=== PATIENT | female | born 1990 | race Asian ===

== ENCOUNTER → 2018-03-14 10:21 | Outpatient (CLI) | payer OTHER, SELFPAY | DX: Z23 Encounter for immunization (principal) | CPT/HCPCS: 90471; 90686 ==

== ENCOUNTER → 2019-03-15 07:21 | Outpatient (CLI) | payer OTHER, SELFPAY ==
--- NOTE | 2019-03-15 | DI.US.S_ITS ---
PROCEDURE: US PELVIC COMPLETE INDICATIONS: UNABLE TO INSERT IUD; POSSIBLE FIBROID TECHNIQUE: Real-time scanning was performed of the pelvic organs, with image documentation. Additional endovaginal scanning was necessary due to incomplete visualization of the adnexal and endometrial structures by transabdominal scanning. COMPARISON: None. FINDINGS: Transabdominal scanning: Limited scanning through the kidneys shows no hydronephrosis. No pathologic free abdominal or pelvic fluid. Endovaginal scanning: Uterus: Uterus is normal in size at 7.0 x 3.6 x 5.3 cm. The endometrium measures 12.6 mm in combined thickness. Ovaries: Normal ovaries bilaterally symmetr is on the right 2.4 x 1.6 x 2.1 cm on the left. IMPRESSION: Normal exam. Dictated by: Josh KOCH Interpreted: Galo May MD on 03/15/2019 at 10:08 Approved by: Galo May M.D. on 03/15/2019 at 12:39
== END ==
PROVIDERS: PCP Physician Assistant; Visit Provider Nurse Practitioner Family
DX: Z30.8 Encounter for other contraceptive management (principal)
CPT/HCPCS: 76830; 76856

== ENCOUNTER 2019-03-31 20:01 | Observation (INO) | payer OTHER, SELFPAY ==
[2019-03-31 20:08] VITALS: BP 148/103; PULSE 124; RESP 16; TEMP 37.3; O2SAT 100; BMI 23.8
[2019-03-31 20:30] LABS: Add Manual Diff / Slide Review NO; Basophils Absolute Auto 0 /uL (0-100); Basophils Percent Auto 0.2 % (0-2); Eosinophils Absolute Auto 0 /uL (0-450); Hematocrit 42.8 % (36-46); Hemoglobin 14.4 g/dL (12.0-16.0); Lymphocytes Absolute Auto 600 /uL (1100-4500); Lymphocytes Percent Auto 3.4 % (25-40); Mean Corpuscular HGB Conc 33.6 % (30-36); Mean Corpuscular Hemoglobin 30.8 PG (26-34); Mean Corpuscular Volume 91.7 fL (80-100); Monocytes Absolute Auto 600 /uL (0-900); Monocytes Percent Auto 3.3 % (3-14); Neutrophils Absolute Auto 16900 /uL (1500-7000); Neutrophils Percent Auto 93.1 % (50-75); Platelet Count 196 X10^3/uL (150-400); Prothrombin Time 11.8 SECONDS (10.1-12.7); Red Blood Cell Count 4.67 X10^6/uL (4.0-5.2); Red Cell Distribution Width 12.7 % (11.6-14.8); White Blood Cell Count 18.1 X10^3/uL (4.5-11.0)
[2019-03-31 20:33] LABS: PTT Partial Thromboplastin Tim 34 SECONDS (26.4-36.2)
[2019-03-31 20:34] LABS: Alanine Aminotransferase 13 IU/L (<35); Albumin 4.8 g/dL (3.5-5.0); Albumin Globulin Ratio 1.4 (1.0-2.8); Alkaline Phosphatase 61 U/L (38-126); Amylase 89 U/L (30-110); Aspartate Aminotransferase 22 IU/L (14-36); Bilirubin Total 0.5 mg/dL (0.2-1.3); Blood Urea Nitrogen 9 mg/dL (7-17); Calcium 9.7 mg/dL (8.4-10.2); Carbon Dioxide 25 mmol/L (22-32); Chloride 104 mmol/L (98-107); Estimated Glomerular Filt Rate > 60.0 mL/min (>60); Globulin 3.4 g/dL (1.7-4.1); Glucose 139 mg/dL (70-100); HEMOLYSIS < 15 (0-50); Lipase 54 U/L (23-300); Sodium 140 mmol/L (137-145); Total Protein 8.2 g/dL (6.3-8.2)
[2019-03-31] MEDS: MORPHINE 2 MG/ML INJ IV (20:36)
[2019-03-31] MEDS: ONDANSETRON 4 MG/2 ML INJ IV (20:36)
[2019-03-31 20:46] LABS: Influenza A and B by PCR Rapid Negative (Negative)
--- NOTE | 2019-03-31 20:51 | DI.CT.S_ITS ---
PROCEDURE: CT ABDOMEN PELVIS W CON INDICATIONS: fever, abd pain, tachy, elevated wbc TECHNIQUE: After the administration of intravenous contrast, 5 mm thick sections acquired from the diaphragm to the symphysis. 5 mm coronal and sagittal reformats were acquired. For radiation dose reduction, the following was used: automated exposure control, adjustment of mA and/or kV according to patient size. COMPARISON: None. FINDINGS: Image quality: Excellent. ABDOMEN: Lung bases: Lung bases are clear. Heart size is normal. Solid organs: Liver is enlarged with steatosis. Gallbladder demonstrates a luminal calcification without wall thickening. Biliary system is non dilated. Pancreas enhances normally. Spleen is normal in size and enhancement. No adrenal nodules. Kidneys demonstrate normal size and enhancement, without hydronephrosis. Peritoneum and bowel: Bowel loops demonstrate normal wall thickness and caliber. No free fluid or air. The appendix is enlarged measuring 12 mm. Her surrounding periappendiceal inflammatory change. No appendicolith. No evidence of rupture. Nodes and vessels: No retroperitoneal or mesenteric adenopathy by size criteria. Aorta and inferior vena cava are normal in size. Miscellaneous: No ventral hernias. PELVIS: Genitourinary: Bladder wall thickness is normal. Miscellaneous: No inguinal hernias or adenopathy. Bones: No suspicious bony lesions. No vertebral body compression fractures. IMPRESSION: 1. Enlarged appendix with inflammatory change most consistent with appendicitis. The above findings were discussed with Dr. Damion Osorio on 03/31/19 at 9:26 PM. Dictated by: Neida Patino M.D. on 03/31/2019 at 21:25 Approved by: Neida Patino M.D. on 03/31/2019 at 21:28
[2019-03-31 21:15] LABS: Procalcitonin < 0.05 ng/mL (<0.5)
[2019-03-31] MEDS: SODIUM CHLORIDE 0.9% 1,000 ML 1000 ML IV (21:15)
--- NOTE | 2019-03-31 21:22 | ED.ABDPAIN ---
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 She states that has been going on since yesterday. She states it is worse with she has not been able to keep anything down today and vomited starting this morning. She states she had a normal bowel movement today. She states she has had 4 episodes of this in the past, but it always resolves. She complains of muscle aches and chills, general malaise. She denies any chest pain shortness of breath. At slight cough and congestion for the past few days. Vaccinations are up-to-date. 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 She denies any her story of IBS or Crohn's etc. She states that she does not know her father's family history. She denies any dysuria urgency or frequency. She denies possibility of , and states that she had a pelvic ultrasound few weeks ago as she tried to get an IUD but they are unable to insert it. The patient denies right upper quadrant pain. She states her pain is generalized around her bellybutton. Related Data Allergies Allergy/AdvReac Type Severity Reaction Status Date / Time No Known Drug Allergies Allergy Verified 03/31/19 21:59 Review of Systems <NAYA Isabel - Last Filed: 03/31/19 21:36> Review of Systems Narrative: GENERAL: Denies chills, fatigue, malaise, fever, sweats. HEENT: Denies sinus pain, ear pain, sore throat, difficulty swallowing, dizziness. RESPIRATORY: Denies dyspnea, cough, wheezing, hemoptysis, sputum. CARDIOVASCULAR: Denies chest pain, palpitations, orthopnea, edema, GASTROINTESTINAL: See HPI : Denies dysuria, frequency, incontinence, hematuria, urinary retention. MUSCULOSKELETAL: denies weakness, joint pain, or bony pain SKIN: Denies rash, skin lesions, or other NEUROLOGIC: Denies weakness, headache, numbness, change in speech, confusion, seizures, incoordination. PSYCHIATRIC: No concerning psychosocial issues. 12 point review of systems is negative except for those stated above Patient History <LUZ MARIA Isabel - Last Filed: 03/31/19 21:36> Medical History (Updated 03/31/19 @ 22:45 by Damion Osorio DO) Healthy adult (Inactive) No active medical problems (Acute) Family History (Updated 03/31/19 @ 22:07 by Allen Flower MD) Other Cancer Ovarian cancer Social History Smoking Status: Never smoker Substance Use Type: does not use Exam <LUZ MARIA Isabel - Last Filed: 03/31/19 21:36> Narrative Exam Narrative: GENERAL: This is a well-nourished, well-developed patient, appears uncomfortable HEAD: Atraumatic. Normocephalic. No temporal or scalp tenderness. EYES: Pupils equal round and reactive. Extraocular motions intact. No scleral icterus. No injection or drainage. ENT: Nose without bleeding, purulent drainage or septal hematoma. Throat without erythema, tonsillar hypertrophy or exudate. Uvula midline. Airway patent. NECK: Trachea midline. No JVD or lymphadenopathy. Supple, nontender, no meningeal signs. CARDIOVASCULAR: Regular rate and rhythm without murmurs, gallops, or rubs. RESPIRATORY: Clear to auscultation. Breath sounds equal bilaterally. No wheezes, rales, or rhonchi. GASTROINTESTINAL: Abdomen soft, diffusely tender with guarding noted periumbilical area, nondistended. No hepato-splenomegaly, or palpable masses. Negative Nickerson sign. EXTREMITIES: No clubbing, cyanosis, or edema. No joint tenderness, effusion, or edema noted. BACK: Nontender without deformity or crepitance. No flank tenderness. NEURO: AOx3. SKIN: No rash or erythema. Initial Vital Signs Initial Vital Signs: Vital Signs Temperature 99.1 F 03/31/19 20:08 Pulse Rate 124 H 03/31/19 20:08 Respiratory Rate 16 03/31/19 20:08 Blood Pressure 148/103 H 03/31/19 20:08 Pulse Oximetry 100 03/31/19 20:08 <Damion Osorio DO - Last Filed: 03/31/19 22:49> Initial Vital Signs Initial Vital Signs: Vital Signs Temperature 99.1 F 03/31/19 20:08 Pulse Rate 124 H 03/31/19 20:08 Respiratory Rate 16 03/31/19 20:08 Blood Pressure 148/103 H 03/31/19 20:08 Pulse Oximetry 100 03/31/19 20:08 Course <Jamaica DegrootALBERTOP-BC - Last Filed: 03/31/19 21:36> Orders Ordered: ED Orders 03/31/19 20:17 Amylase Stat Complete Blood Count AUTO DIFF Stat Comprehensive Metabolic Panel Stat Lipase Stat Partial Thromboplastin Time Stat Procalcitonin Stat Prothrombin Time INR Stat 03/31/19 20:22 Influenza A and B by PCR Rapid Stat 03/31/19 20:51 CT abdomen pelvis w con Stat Lactated Ringer's (Lactated Ringers) 1,000 mls @ 42 mls/hr IV CONT LEVAR Discontinued Medications Sodium Chloride (Normal Saline 0.9%) 1,000 mls @ 1,000 mls/hr IV BOLUS ONE Stop: 03/31/19 21:50 Last Infusion: 03/31/19 22:31 Dose: 0 mls/hr Documented by: Admin: 03/31/19 21:15 Dose: 1,000 mls/hr Documented by: RAJINDER Piperacillin/Tazobactam/Dextrose (Zosyn) 3.375 gm in 50 mls @ 100 mls/hr IV NOW ONE Stop: 03/31/19 22:27 Last Infusion: 03/31/19 22:42 Dose: 0 mls/hr Documented by: Infusion: 03/31/19 22:07 Dose: 0 mls/hr Documented by: Admin: 03/31/19 22:06 Dose: 100 mls/hr Documented by: RAJINDER Morphine Sulfate (Morphine) 2 mg IV NOW ONE Stop: 03/31/19 20:32 Last Admin: 03/31/19 20:36 Dose: 2 mg Documented by: RAJINDER Morphine Sulfate (Morphine) 4 mg IV NOW ONE Stop: 03/31/19 21:35 Last Admin: 03/31/19 22:04 Dose: 4 mg Documented by: RAJINDER Ondansetron HCl (Zofran) 4 mg IV NOW ONE Stop: 03/31/19 20:20 Last Admin: 03/31/19 20:36 Dose: 4 mg Documented by: RAJINDER Vital Signs Vital signs: Vital Signs - 8 hr 03/31/19 20:08 03/31/19 21:38 Temperature 99.1 F Pulse Rate 124 H 94 H Respiratory Rate 16 Blood Pressure 148/103 H Blood Pressure [Left Arm] 143/107 H Pulse Oximetry 100 100 <Damion Osorio DO - Last Filed: 03/31/19 22:49> Orders Ordered: ED Orders 03/31/19 20:17 Amylase Stat Complete Blood Count AUTO DIFF Stat Comprehensive Metabolic Panel Stat Lipase Stat Partial Thromboplastin Time Stat Procalcitonin Stat Prothrombin Time INR Stat 03/31/19 20:22 Influenza A and B by PCR Rapid Stat 03/31/19 20:51 CT abdomen pelvis w con Stat Lactated Ringer's (Lactated Ringers) 1,000 mls @ 42 mls/hr IV CONT LEVAR Discontinued Medications Sodium Chloride (Normal Saline 0.9%) 1,000 mls @ 1,000 mls/hr IV BOLUS ONE Stop: 03/31/19 21:50 Last Infusion: 03/31/19 22:31 Dose: 0 mls/hr Documented by: Admin: 03/31/19 21:15 Dose: 1,000 mls/hr Documented by: RAJINDER Piperacillin/Tazobactam/Dextrose (Zosyn) 3.375 gm in 50 mls @ 100 mls/hr IV NOW ONE Stop: 03/31/19 22:27 Last Infusion: 03/31/19 22:42 Dose: 0 mls/hr Documented by: Infusion: 03/31/19 22:07 Dose: 0 mls/hr Documented by: Admin: 03/31/19 22:06 Dose: 100 mls/hr Documented by: RAJINDER Morphine Sulfate (Morphine) 2 mg IV NOW ONE Stop: 03/31/19 20:32 Last Admin: 03/31/19 20:36 Dose: 2 mg Documented by: RAJINDER Morphine Sulfate (Morphine) 4 mg IV NOW ONE Stop: 03/31/19 21:35 Last Admin: 03/31/19 22:04 Dose: 4 mg Documented by: RAJINDER Ondansetron HCl (Zofran) 4 mg IV NOW ONE Stop: 03/31/19 20:20 Last Admin: 03/31/19 20:36 Dose: 4 mg Documented by: RAJINDER Vital Signs Vital signs: Vital Signs - 8 hr 03/31/19 20:08 03/31/19 21:38 Temperature 99.1 F Pulse Rate 124 H 94 H Respiratory Rate 16 Blood Pressure 148/103 H Blood Pressure [Left Arm] 143/107 H Pulse Oximetry 100 100 MDM - Abdominal Pain <Jamaica Degroot, DATA SECURITY ANALYST-BC - Last Filed: 03/31/19 21:36> Lab Data Result diagrams: 03/31/19 20:17 03/31/19 20:17 Labs: Lab Results 03/31/19 03/31/19 03/31/19 Range/Units 20:17 20:17 20:17 WBC 18.1 H (4.5-11.0) X10^3/uL RBC 4.67 (4.0-5.2) X10^6/uL Hgb 14.4 (12.0-16.0) g/dL Hct 42.8 (36-46) % MCV 91.7 (80-100) fL MCH 30.8 (26-34) PG MCHC 33.6 (30-36) % RDW 12.7 (11.6-14.8) % Plt Count 196 (150-400) X10^3/uL Neut % (Auto) 93.1 H (50-75) % Lymph % (Auto) 3.4 L (25-40) % [place] % (Auto) 3.3 (3-14) % Eos % (Auto) 0.0 L (2-4) % Baso % (Auto) 0.2 (0-2) % Neut # (Auto) 82635 H (9492-1405) /uL Lymph # (Auto) 600 L (8005-6456) /uL [place] # (Auto) 600 (0-900) /uL Eos # (Auto) 0 (0-450) /uL Baso # (Auto) 0 (0-100) /uL PT 11.8 (10.1-12.7) SECONDS INR 1.0 (0.9-1.3) APTT 34 (26.4-36.2) SECONDS Sodium 140 (137-145) mmol/L Potassium 4.0 (3.4-5.1) mmol/L Chloride 104 (98-107) mmol/L Carbon Dioxide 25 (22-32) mmol/L BUN 9 (7-17) mg/dL Creatinine 0.60 (0.52-1.04) mg/dL Estimated GFR > 60.0 (>60) mL/min BUN/Creatinine Ratio 15.0 (6-22) Glucose 139 H (70-100) mg/dL Calcium 9.7 (8.4-10.2) mg/dL Total Bilirubin 0.5 (0.2-1.3) mg/dL AST 22 (14-36) IU/L ALT 13 (<35) IU/L Alkaline Phosphatase 61 (38-126) U/L Total Protein 8.2 (6.3-8.2) g/dL Albumin 4.8 (3.5-5.0) g/dL Globulin 3.4 (1.7-4.1) g/dL Albumin/Globulin Ratio 1.4 (1.0-2.8) Amylase (30-110) U/L Lipase 54 (23-300) U/L Procalcitonin (<0.5) ng/mL Influenza A & B (PCR) (Negative) 03/31/19 03/31/19 03/31/19 Range/Units 20:17 20:17 20:22 WBC (4.5-11.0) X10^3/uL RBC (4.0-5.2) X10^6/uL Hgb (12.0-16.0) g/dL Hct (36-46) % MCV (80-100) fL MCH (26-34) PG MCHC (30-36) % RDW (11.6-14.8) % Plt Count (150-400) X10^3/uL Neut % (Auto) (50-75) % Lymph % (Auto) (25-40) % [place] % (Auto) (3-14) % Eos % (Auto) (2-4) % Baso % (Auto) (0-2) % Neut # (Auto) (8434-0223) /uL Lymph # (Auto) (0534-2898) /uL [place] # (Auto) (0-900) /uL Eos # (Auto) (0-450) /uL Baso # (Auto) (0-100) /uL PT (10.1-12.7) SECONDS INR (0.9-1.3) APTT (26.4-36.2) SECONDS Sodium (137-145) mmol/L Potassium (3.4-5.1) mmol/L Chloride (98-107) mmol/L Carbon Dioxide (22-32) mmol/L BUN (7-17) mg/dL Creatinine (0.52-1.04) mg/dL Estimated GFR (>60) mL/min BUN/Creatinine Ratio (6-22) Glucose (70-100) mg/dL Calcium (8.4-10.2) mg/dL Total Bilirubin (0.2-1.3) mg/dL AST (14-36) IU/L ALT (<35) IU/L Alkaline Phosphatase (38-126) U/L Total Protein (6.3-8.2) g/dL Albumin (3.5-5.0) g/dL Globulin (1.7-4.1) g/dL Albumin/Globulin Ratio (1.0-2.8) Amylase 89 (30-110) U/L Lipase (23-300) U/L Procalcitonin < 0.05 (<0.5) ng/mL Influenza A & B (PCR) Negative (Negative) Point of care testing: Point of Care Testing Test Results Negative Urine Dip Bedside Urine Glucose Negative Bedside Urine Bilirubin - Negative Bedside Urine Ketone - Negative Urine Specific [place] 1.010 Bedside Urine Occult Blood - Negative Bedside Urine pH 8.5 Bedside Urine Protein + 30 Bedside Urine Urobilinogen +/- 1mg Bedside Urine Nitrite - Negative Bedside Urine Leukocytes - Negative Esterase MDM Narrative Medical decision making narrative: The patient is a 28-year-old female with history of abdominal pain. She is noted to be febrile, tachycardic in the 120s. Her flu test is negative. Basic labs were drawn and she was found to have an elevated white blood cell count 18. She does have guarding on exam, so combined with her leukocytosis, fever and tachycardia I did obtain a CT abdomen pelvis with contrast. Patient was signed out to Dr. Osorio [id number] with imaging pending. She has received fluids, pain medication and nausea medication. <Damion Osorio DO - Last Filed: 03/31/19 22:49> Lab Data Attestation: I reviewed the patient's lab results. Labs: Lab Results 03/31/19 03/31/19 03/31/19 Range/Units 20:17 20:17 20:17 WBC 18.1 H (4.5-11.0) X10^3/uL RBC 4.67 (4.0-5.2) X10^6/uL Hgb 14.4 (12.0-16.0) g/dL Hct 42.8 (36-46) % MCV 91.7 (80-100) fL MCH 30.8 (26-34) PG MCHC 33.6 (30-36) % RDW 12.7 (11.6-14.8) % Plt Count 196 (150-400) X10^3/uL Neut % (Auto) 93.1 H (50-75) % Lymph % (Auto) 3.4 L (25-40) % [place] % (Auto) 3.3 (3-14) % Eos % (Auto) 0.0 L (2-4) % Baso % (Auto) 0.2 (0-2) % Neut # (Auto) 79951 H (8775-4053) /uL Lymph # (Auto) 600 L (6786-4864) /uL [place] # (Auto) 600 (0-900) /uL Eos # (Auto) 0 (0-450) /uL Baso # (Auto) 0 (0-100) /uL PT 11.8 (10.1-12.7) SECONDS INR 1.0 (0.9-1.3) APTT 34 (26.4-36.2) SECONDS Sodium 140 (137-145) mmol/L Potassium 4.0 (3.4-5.1) mmol/L Chloride 104 (98-107) mmol/L Carbon Dioxide 25 (22-32) mmol/L BUN 9 (7-17) mg/dL Creatinine 0.60 (0.52-1.04) mg/dL Estimated GFR > 60.0 (>60) mL/min BUN/Creatinine Ratio 15.0 (6-22) Glucose 139 H (70-100) mg/dL Calcium 9.7 (8.4-10.2) mg/dL Total Bilirubin 0.5 (0.2-1.3) mg/dL AST 22 (14-36) IU/L ALT 13 (<35) IU/L Alkaline Phosphatase 61 (38-126) U/L Total Protein 8.2 (6.3-8.2) g/dL Albumin 4.8 (3.5-5.0) g/dL Globulin 3.4 (1.7-4.1) g/dL Albumin/Globulin Ratio 1.4 (1.0-2.8) Amylase (30-110) U/L Lipase 54 (23-300) U/L Procalcitonin (<0.5) ng/mL Influenza A & B (PCR) (Negative) 03/31/19 03/31/19 03/31/19 Range/Units 20:17 20:17 20:22 WBC (4.5-11.0) X10^3/uL RBC (4.0-5.2) X10^6/uL Hgb (12.0-16.0) g/dL Hct (36-46) % MCV (80-100) fL MCH (26-34) PG MCHC (30-36) % RDW (11.6-14.8) % Plt Count (150-400) X10^3/uL Neut % (Auto) (50-75) % Lymph % (Auto) (25-40) % [place] % (Auto) (3-14) % Eos % (Auto) (2-4) % Baso % (Auto) (0-2) % Neut # (Auto) (2901-4361) /uL Lymph # (Auto) (7855-3977) /uL [place] # (Auto) (0-900) /uL Eos # (Auto) (0-450) /uL Baso # (Auto) (0-100) /uL PT (10.1-12.7) SECONDS INR (0.9-1.3) APTT (26.4-36.2) SECONDS Sodium (137-145) mmol/L Potassium (3.4-5.1) mmol/L Chloride (98-107) mmol/L Carbon Dioxide (22-32) mmol/L BUN (7-17) mg/dL Creatinine (0.52-1.04) mg/dL Estimated GFR (>60) mL/min BUN/Creatinine Ratio (6-22) Glucose (70-100) mg/dL Calcium (8.4-10.2) mg/dL Total Bilirubin (0.2-1.3) mg/dL AST (14-36) IU/L ALT (<35) IU/L Alkaline Phosphatase (38-126) U/L Total Protein (6.3-8.2) g/dL Albumin (3.5-5.0) g/dL Globulin (1.7-4.1) g/dL Albumin/Globulin Ratio (1.0-2.8) Amylase 89 (30-110) U/L Lipase (23-300) U/L Procalcitonin < 0.05 (<0.5) ng/mL Influenza A & B (PCR) Negative (Negative) Point of care testing: Point of Care Testing Test Results Negative Urine Dip Bedside Urine Glucose Negative Bedside Urine Bilirubin - Negative Bedside Urine Ketone - Negative Urine Specific [place] 1.010 Bedside Urine Occult Blood - Negative Bedside Urine pH 8.5 Bedside Urine Protein + 30 Bedside Urine Urobilinogen +/- 1mg Bedside Urine Nitrite - Negative Bedside Urine Leukocytes - Negative Esterase Imaging Data CT scan - abdomen: Radiologist's impression: [place] [address] CT Scan Report Signed Patient: Stephanie Franco EMR#: [id number] : 1990Acct:[id number] Age/Sex: 28 / FDate of Service: 03/31/19 Loc: ED Accession Number: [id number] Procedure: CT abdomen pelvis w con Ordering Provider: Jamaica Degroot DATA SECURITY ANALYST-BC PROCEDURE: CT ABDOMEN PELVIS W CON INDICATIONS: fever, abd pain, tachy, elevated wbc TECHNIQUE: After the administration of intravenous contrast, 5 mm thick sections acquired from the diaphragm to the symphysis. 5 mm coronal and sagittal reformats were acquired. For radiation dose reduction, the following was used: automated exposure control, adjustment of mA and/or kV according to patient size. COMPARISON: None. FINDINGS: Image quality: Excellent. ABDOMEN: Lung bases: Lung bases are clear. Heart size is normal. Solid organs: Liver is enlarged with steatosis. Gallbladder demonstrates a luminal calcification without wall thickening. Biliary system is non dilated. Pancreas enhances normally. Spleen is normal in size and enhancement. No adrenal nodules. Kidneys demonstrate normal size and enhancement, without hydronephrosis. Peritoneum and bowel: Bowel loops demonstrate normal wall thickness and caliber. No free fluid or air. The appendix is enlarged measuring 12 mm. Her surrounding periappendiceal inflammatory change. No appendicolith. No evidence of rupture. Nodes and vessels: No retroperitoneal or mesenteric adenopathy by size criteria. Aorta and inferior vena cava are normal in size. Miscellaneous: No ventral hernias. PELVIS: Genitourinary: Bladder wall thickness is normal. Miscellaneous: No inguinal hernias or adenopathy. Bones: No suspicious bony lesions. No vertebral body compression fractures. IMPRESSION: 1. Enlarged appendix with inflammatory change most consistent with appendicitis. The above findings were discussed with Dr. Damion Osorio on 03/31/19 at 9:26 PM. Dictated by: Neida Patino M.D. on 03/31/2019 at 21:25 Approved by: Neida Patino M.D. on 03/31/2019 at 21:28 MDM Narrative Medical decision making narrative: Pt will be admitted to surgery for surgical intervention Discharge Plan Departure Patient Disposition: Admitted as Observation Clinical Impression: Acute appendicitis Qualifiers: Acute appendicitis type: other Qualified Code(s): K35.890 - Other acute appendicitis without perforation or gangrene Admit Date/Time: 03/31/19 21:57 Admit Provider: Allen Flower
[2019-03-31 21:38] VITALS: BP 143/107; PULSE 94; O2SAT 100
--- NOTE | 2019-03-31 22:02 | PM.HP.1 ---
History of Present Illness History of Present Illness Date Patient Seen: 03/31/19 Time Patient Seen: 22:03 Chief complaint: Abdominal pain Narrative: Patient is a woman with a 2 day history of diffuse abdominal pain accompanied by nausea and vomiting. The pain began 2 days ago the vomiting today. There was a brief let up in the pain from yesterday to today but today it is just been progressive and steady. She has had very similar symptoms like this for the past 2 months intermittently. Her last p.o. intake was about 1:00 p.m.. She has had very little today. Her last period was 3 days ago. It was normal. She recently had an attempted placement of an IUD but was unsuccessful. A pelvic ultrasound was done to determine why and nothing was found. She had no regular of test. I was called because of the CT and the other findings. Patient History Medical History (Updated 03/31/19 @ 22:06 by Allen Flower MD) Healthy adult (Inactive) No active medical problems (Acute) Family & Social History Family History (Updated 03/31/19 @ 22:07 by Allen Flower MD) Other Cancer Ovarian cancer Family history unavailable: Yes (On father side) Social History: Does not smoke and rarely drinks Safety & Behavioral: Feels Safe in Current Yes Environment Been Physically Hurt or No Threatened By a Person Tobacco & Substance use: Smoking Status Never smoker Substance Use Type does not use Meds Home Medications and Allergies Allergies Allergy/AdvReac Type Severity Reaction Status Date / Time No Known Drug Allergies Allergy Verified 03/31/19 21:59 Review of Systems Review of Systems Narrative: Patient wears glasses. No double vision or pain arise. No earaches or sore throat. No cough cold or asthma presently though she did have asthma as a child. No teeth aches or trouble swallowing. No heart murmurs or chest pain or heart problems. No black or bloody bowel movements. No seizures or blackouts. No unusual bruising or bleeding. Exam Vital Signs (past 8 hours): - 03/31/19 20:08 03/31/19 21:38 Temperature 99.1 F Pulse Rate 124 H 94 H Respiratory Rate 16 Blood Pressure 148/103 H Blood Pressure [Left Arm] 143/107 H Pulse Oximetry 100 100 Oxygen Delivery Method Room Air Narrative Exam Narrative: Cooperative no apparent distress. Eyes are nonicteric. Pupils small equal round reactive to light. Conjunctiva pink. Ears without lesion. Oral mucosa is pink moist no open lesions. Her teeth are intact. There are no nodes in the neck or supraclavicular areas. Trachea is midline mobile. Thyroid is not enlarged. Lungs are clear to auscultation without rales or rhonchi in equal percussion. Heart regular rate and rhythm without murmur gallop. She is little tachycardic however. Her abdomen is slightly distended but soft. There is localized tenderness without guarding in the right lower quadrant. Patient is alert and oriented. Her speech rate and content are appropriate. Her affect is appropriate. Objective Imaging CT scan - abdomen: My impression: Somewhat enlarged uterus. Gallstone without gallbladder inflammation. Difficult to make out and appendix. Radiologist's impression: Same as above except the radiologist's reports a 12 mm diameter appendix with periappendiceal inflammatory changes and does not mention the uterus Labs Result Diagrams: 03/31/19 20:17 03/31/19 20:17 Labs: Laboratory Results - last 24 hr 03/31/19 03/31/19 03/31/19 20:17 20:17 20:17 WBC 18.1 H RBC 4.67 Hgb 14.4 Hct 42.8 MCV 91.7 MCH 30.8 MCHC 33.6 RDW 12.7 Plt Count 196 Neut % (Auto) 93.1 H Lymph % (Auto) 3.[address] [place] % (Auto) 3.3 Eos % (Auto) 0.0 L Baso % (Auto) 0.2 Neut # (Auto) 05972 H Lymph # (Auto) [address] [place] # (Auto) 600 Eos # (Auto) 0 Baso # (Auto) 0 PT 11.8 INR 1.0 APTT 34 Sodium 140 Potassium 4.0 Chloride 104 Carbon Dioxide 25 BUN 9 Creatinine 0.60 Estimated GFR > 60.0 BUN/Creatinine Ratio 15.0 Glucose 139 H Calcium 9.7 Total Bilirubin 0.5 AST 22 ALT 13 Alkaline Phosphatase 61 Total Protein 8.2 Albumin 4.8 Globulin 3.4 Albumin/Globulin Ratio 1.4 Amylase Lipase 54 Procalcitonin Influenza A & B (PCR) 03/31/19 03/31/19 03/31/19 20:17 20:17 20:22 WBC RBC Hgb Hct MCV MCH MCHC RDW Plt Count Neut % (Auto) Lymph % (Auto) [place] % (Auto) Eos % (Auto) Baso % (Auto) Neut # (Auto) Lymph # (Auto) [place] # (Auto) Eos # (Auto) Baso # (Auto) PT INR APTT Sodium Potassium Chloride Carbon Dioxide BUN Creatinine Estimated GFR BUN/Creatinine Ratio Glucose Calcium Total Bilirubin AST ALT Alkaline Phosphatase Total Protein Albumin Globulin Albumin/Globulin Ratio Amylase 89 Lipase Procalcitonin < 0.05 Influenza A & B (PCR) Negative Assessment & Plan Assessment & Plan narrative: Patient with a 2 day history of abdominal pain, nausea and vomiting, elevated white blood cell count 18 with almost all segs and a CT report suggesting acute appendicitis. I have discussed this with the patient risks of bleeding infection hernia discussed with her. Alternative diagnoses also discussed. I talked to her about her recurrence symptoms. I explained that while there are alternatives, given her white blood cell count and the CT findings and her symptoms it is hard for me to recommend observation and hope this will go away. I think that what would happen issue would perforate and be quite ill. The potential do other operations discussed. All questions answered. She wishes to proceed.
[2019-03-31 22:03] VITALS: BMI 23.8
[2019-03-31] MEDS: MORPHINE 4 MG/ML INJ IV (22:04)
[2019-03-31] MEDS: PIPERACILLIN-TAZO 3.375 GM/50 ML FROZ.PIGGY IV (22:06)
--- NOTE | 2019-03-31 22:27 | PM.PREOP ---
Pre-operative Note Interval Note History & Physical reviewed/Exam performed by Physician: Yes Changes to H&P: No
--- NOTE | 2019-03-31 22:36 | PC.NURSE ---
Anesthesia in ED for consult. Pt ambulated to BR with steady gait. Plan to be taken to OR tonight.
--- NOTE | 2019-03-31 22:38 | PC.NURSE ---
Per Surgery, hang Zosyn and do not infuse. Zosyn scanned and paused. Report given to OUTREACH NURSE. Pt taken to surgery at this time.
[2019-03-31 22:43] VITALS: BP 138/91; PULSE 93; RESP 16; O2SAT 97
[2019-03-31] MEDS: LACTATED RINGERS 1,000 ML 42 ML IV ×2 (22:46→23:39)
--- NOTE | 2019-03-31 23:27 | SUR.OPER ---
Supine on padded OR bed, head on pillow, left arm padded and tucked at side, right arm on padded arm board <90 degrees abduction, legs uncrossed, safety belt at thigh, tape over blanket over lower legs .
[2019-04-01] VITALS (13 sets, daily range): BP systolic 86–133; BP diastolic 54–84; PULSE 74–101; RESP 10–19; TEMP 36.3–37.4; O2SAT 92–99
--- NOTE | 2019-04-01 | PATH_ITS ---
[facility] Accession Number: [id number] . 01 Material submitted: . appendix - APPENDIX . 02 Diagnosis: Appendix, Appendectomy: Acute appendicitis and serositis. MRV 04/03/2019 1026 Local . 02 Electronically signed: . Nicolette Steele MD, Pathologist NPI- [id number] . 01 Gross description: . Received in formalin, labeled appendix, is an appendix (length-4.7 cm, diameter-1.2 cm) with mcgrath-mathur partially exudate covered serosa and an opened resection margin. The lumen contains mathur-pink solid soft material. The wall is up to 0.3 cm thick. No nodules, masses or lesions are identified. The resection margin is inked black. Section code: (A1) resection margin en face and three additional inbound call center representative serial sections; (A2) one-half of the bivalved tip. ([id number]) /[facility] 04/02/2019 1621 Local . 02 Pathologist provided ICD-10: K35.80 . 02 CPT . 399631 Performed at: 01 [facility] [address], [place], [place] [id number] MD Jostin Campuzano MD Phone: [phone] Performed at: 02 [facility] [address] [place], [place] [id number] MD Val Steele MD Phone: [phone]
[2019-04-01] MEDS: BUPIVACAINE 0.5% (PF) VIAL 30 ML INJ (00:16)
--- NOTE | 2019-04-01 00:37 | PM.OP.1 ---
Operative Date/Time/Diagnoses Date of procedure: 04/01/19 Time of procedure: 00:37 Pre-op diagnosis: Abdominal pain. Acute appendicitis. Post-op diagnosis: same (With endometrial implants) Procedure & Clinicians Procedure: Laparoscopic appendectomy for acute appendicitis. Cauterization of endometrial implants Same procedure as scheduled: Yes Indications: Abnormal CT with abdominal pain Surgeon: Allen Hilario Yes if Unassisted: Yes Anesthesia Type: General Operative Notes Findings: Acute appendicitis. Enemy 0 atrial implants behind and in front of the uterus on the peritoneal surface Closure Type: primary Specimen(s): other (Appendix) Estimated Blood Loss (mL): 25 Blood products transfused: none Procedure in detail: The patient was placed supine on the operating room table and underwent general endotracheal anesthesia. She was prepped and draped in the usual fashion. Local anesthetic was infiltrated in the infraumbilical fold. Incision was made here and carried into the peritoneal cavity under direct vision. A 12 mm port was placed. The appendix is readily identified curled next to the abdominal wall but not adherent to it. Using cautery blunt dissection and ultimately the Harmonic scalpel I divided the mesial appendix. This was carried all the way back to the base of the appendix. A loop of 0 PDS was placed at the base and cinched down. A clamp was placed distal to the loop. The Harmonic scalpel was used to divide between the loops and the clamp. There was no spillage of material. The appendix was immediately placed in a bag and removed without difficulty. The right lower quadrant irrigated suctioned free of fluid. Meticulous hemostasis was achieved. The pelvis was irrigated out and suctioned free of fluid. What appeared to be endometrial implants were located anterior and posterior to the uterus on the peritoneal surfaces. I cauterized these. I could not see any other implants though others may have been present. Uterus and ovaries were unremarkable. There were small cysts on the tubes. The ports were all removed. 0 Vicryl and 2 0 PDS was used to close the fascia at the umbilicus. The wounds were irrigated and 4 0 Vicryl subcuticular stitches were used to close the skin. Steri-Strips were applied and the patient had Band-Aids applied. She was awakened and extubated and taken to the recovery room in good condition. Complications: none Post-operative Condition: stable Disposition: PACU
[2019-04-01] MEDS: LACTATED RINGERS 1,000 ML 100 ML IV ×2 (01:28→10:07)
[2019-04-01] MEDS: KETOROLAC 30 MG/ML VIAL IV ×2 (01:29→07:45)
--- NOTE | 2019-04-01 01:29 | SUR.PHASEI ---
0117 to room 225, bed down and locked, call light within reach, report given upon arrival, bandaids remain CDI, belly flat, VSS. No questions from pt or staff. Clothing bags to room x2.
[2019-04-01] MEDS: OXYCODONE/ACETAMINOPHEN 5/325 TABLET 1 TAB PO ×3 (02:54→12:37)
--- NOTE | 2019-04-01 06:02 | PC.NURSE ---
Pt admitted to floor after lap appy. Doing well. Reports no nausea. Pain rated 6/10, relieved with Toradol and Percocet. 3 Lap sites dressed with bandaids are clean, dry, and intact. Slightly tachycardic with HR 103. Ambulating to bathroom, voiding appropriately. LR@100mL/hr as ordered. B/L SCDs on.
--- NOTE | 2019-04-01 07:53 | PC.NURSE ---
Addendum entered by Peggy Langston R.N. 04/01/19 14:50: Discharge home: IV dc'd intact and with good hemostasis. Reviewed all d/c instructions thoroughly with patient. She is aware that she needs to call his office schedule follow-up for 7-10 days, and to call w/ s/sx infection or other symptoms of concern that may arise prior to f/u. Sent with hard copy of Percocet script. No other scripts, no home meds at baseline. All personal belongings collected and sent with patient at discharge. Verbalized understanding of d/c info and stated no further questions. Wheeled out to private vehicle by nursing staff. Addendum entered by Peggy Langston R.N. 04/01/19 14:19: Resting quietly in bed. Reports abd incisional pain well-managed with Percocet. States the gas pain is more uncomfortable, but it passes on it's own. Continues to ambulate frequently. States she feels like she might be able to sleep, so we agreed to try and allow her to rest undisturbed for while. at bedside and attentive. Call light and belonging within reach. Patient aware that Dr Flower is in surgery all day, so he may not see her until this evening. Addendum entered by Peggy Langston R.N. 04/01/19 12:48: Continues to tolerate PO's without N/V. Has ambulated in the hallways independently. Medicated with 1 tab Percocet for 4/10 abd pain. Given flu shot in L deltoid. Admin info. 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 Copy of info given to patient as well. Addendum entered by Peggy Langston R.N. 04/01/19 10:45: Up ambulating in room frequently and independently, gait steady. NOW dose of IV Zosyn infusing per new order. Able to make needs known and calls appropriately. Addendum entered by Peggy Langston R.N. 04/01/19 08:55: Tolerated full liquids for breakfast without N/V and is asking if she can have something more substantial. Advanced to general diet per standing order. Rates abd pain better, now 2/10. States she also just passed a little bit of gas for the first time. Denies other needs/concerns at this time. Light within reach. in visiting. Original Note: Shift summary: Awake and alert, oriented X3. Band-aids to 3 abd lap sites C/D/I. Belly soft, tender and mildly distended (per patient). Denies N/V. BT+ X4, hypoactive. Denies passing flatus yet. Up independently in room, steady gait. Voiding WNL. Medicated with IV Toradol + 1 tab Percocet for 6/10 abd pain. Has not taken much PO other than water. Full liquids ordered for breakfast, will advance diet as tolerated. IVF per orders, site in L AC WNL. Able to make needs known and calls appropriately. Call light and belongings within reach.
[2019-04-01 08:44] LABS: Add Manual Diff / Slide Review NO; Basophils Absolute Auto 0 /uL (0-100); Eosinophils Absolute Auto 0 /uL (0-450); Hematocrit 39.2 % (36-46); Hemoglobin 13.4 g/dL (12.0-16.0); Lymphocytes Absolute Auto 700 /uL (1100-4500); Lymphocytes Percent Auto 3.7 % (25-40); Mean Corpuscular HGB Conc 34.1 % (30-36); Mean Corpuscular Hemoglobin 30.9 PG (26-34); Mean Corpuscular Volume 90.5 fL (80-100); Monocytes Absolute Auto 300 /uL (0-900); Monocytes Percent Auto 1.5 % (3-14); Neutrophils Absolute Auto 17900 /uL (1500-7000); Neutrophils Percent Auto 94.8 % (50-75); Platelet Count 186 X10^3/uL (150-400); Red Blood Cell Count 4.33 X10^6/uL (4.0-5.2); Red Cell Distribution Width 13.1 % (11.6-14.8); White Blood Cell Count 18.9 X10^3/uL (4.5-11.0)
[2019-04-01] MEDS: PIPERACILLIN-TAZO 3.375 GM/50 ML FROZ.PIGGY IV (10:07)
[2019-04-01] MEDS: GABAPENTIN 300 MG CAPSULE PO (10:07)
--- NOTE | 2019-04-01 12:20 | CM.DANOTE ---
DCP/Assessment: Reviewed chart. Patient is a 28yr old female admitted to I.. under OBS status with abdominal pain. No PCP listed. Primary payor is 1)[facility]. Patient employed at [employer]. Met with patient explained CM/SW role. Patient alert and oriented, resting comfortably in bed at time of visit. Patient reports that she hopes to d/c home today. Patient resides with supportive spouse. Patient completely I with all ADL's. Patient underwent removal of appendix on 03-31-19 without complications. P: Home when medically stable. Patient with no anticipated d/c planning needs. MEJIA Silva Discharge Planning/Care Management CM Discharge Assessment Start: 04/01/19 12:18 Freq: Status: Active Protocol: Document 04/01/19 12:19 KJS (Rec: 04/01/19 12:20 KJS [id number]) Discharge Planning Assessment Assigned General Claims Agent MEJIA Silva Contact Information Jaren Franco (spouse) Advance Directives? No History Provided By Patient,Medical Record Prior Living Arrangements House Household Members spouse Type of transporation used prior to Drives own vehicle admit Independent with ADL's Yes Is patient alert and oriented? Yes Caregiver for Another No Barriers to Discharge No Discharge Plan Home Transportation Arrangement Family to provide transport. Referrals Initiated None needed Whiteboard Updated in Patient Room with Yes name and ext. # of General Claims Agent Review Status In Process Next Review Type Continued Stay Review
[2019-04-01] MEDS: INFLUENZA VACCINE 0.5 ML SYRINGE IM (12:36)
--- NOTE | 2019-04-01 14:23 | PM.DS.1 ---
History of Present Illness History of Present Illness Chief complaint: Abdominal pain Narrative: Patient is a woman with a 2 day history of diffuse abdominal pain accompanied by nausea and vomiting. The pain began 2 days ago the vomiting today. There was a brief let up in the pain from yesterday to today but today it is just been progressive and steady. She has had very similar symptoms like this for the past 2 months intermittently. Her last p.o. intake was about 1:00 p.m.. She has had very little today. Her last period was 3 days ago. It was normal. She recently had an attempted placement of an IUD but was unsuccessful. A pelvic ultrasound was done to determine why and nothing was found. She had no regular of test. I was called because of the CT and the other findings. Discharge Providers Provider Date of admission: 03/31/19 21:57 Discharge Date: 04/01/19 Consults: 04/01/19 01:21 Consult to Discharge Planning Routine Comment: Discharge provider: Allen Flower MD Summary Hospital Course Discharge Diagnosis: Acute appendicitis Endometriosis probably chronic Hospital Course: Patient was taken the operating room and underwent laparoscopic removal of her appendix and fulguration of endometrial implants. She was discharged later the day of her procedure to follow up in the office Status at Discharge Cognitive/behavioral status at discharge: oriented Functional status at discharge: independent ambulation Overall status at discharge: patient is progressing back to baseline Exam Vital Signs (past 8 hours): - 04/01/19 07:32 04/01/19 11:35 Temperature 98.0 F 98.4 F Pulse Rate 81 79 Respiratory Rate 16 16 Blood Pressure 126/78 118/82 Pulse Oximetry 98 99 Oxygen Delivery Method Room Air Oxygen Flow Rate 0 Objective Labs Result Diagrams: 04/01/19 08:30 03/31/19 20:17 Labs: Laboratory Results - last 24 hr 03/31/19 03/31/19 03/31/19 20:17 20:17 20:17 WBC 18.1 H RBC 4.67 Hgb 14.4 Hct 42.8 MCV 91.7 MCH 30.8 MCHC 33.6 RDW 12.7 Plt Count 196 Neut % (Auto) 93.1 H Lymph % (Auto) 3.4 L [place] % (Auto) 3.3 Eos % (Auto) 0.0 L Baso % (Auto) 0.2 Neut # (Auto) 13208 H Lymph # (Auto) 600 L [place] # (Auto) 600 Eos # (Auto) 0 Baso # (Auto) 0 PT 11.8 INR 1.0 APTT 34 Sodium 140 Potassium 4.0 Chloride 104 Carbon Dioxide 25 BUN 9 Creatinine 0.60 Estimated GFR > 60.0 BUN/Creatinine Ratio 15.0 Glucose 139 H Calcium 9.7 Total Bilirubin 0.5 AST 22 ALT 13 Alkaline Phosphatase 61 Total Protein 8.2 Albumin 4.8 Globulin 3.4 Albumin/Globulin Ratio 1.4 Amylase Lipase 54 Procalcitonin Influenza A & B (PCR) 03/31/19 03/31/19 03/31/19 20:17 20:17 20:22 WBC RBC Hgb Hct MCV MCH MCHC RDW Plt Count Neut % (Auto) Lymph % (Auto) [place] % (Auto) Eos % (Auto) Baso % (Auto) Neut # (Auto) Lymph # (Auto) [place] # (Auto) Eos # (Auto) Baso # (Auto) PT INR APTT Sodium Potassium Chloride Carbon Dioxide BUN Creatinine Estimated GFR BUN/Creatinine Ratio Glucose Calcium Total Bilirubin AST ALT Alkaline Phosphatase Total Protein Albumin Globulin Albumin/Globulin Ratio Amylase 89 Lipase Procalcitonin < 0.05 Influenza A & B (PCR) Negative 04/01/19 08:30 WBC 18.9 H RBC 4.33 Hgb 13.4 Hct 39.2 MCV 90.5 MCH 30.9 MCHC 34.1 RDW 13.1 Plt Count 186 Neut % (Auto) 94.8 H Lymph % (Auto) 3.7 L [place] % (Auto) 1.5 L Eos % (Auto) 0.0 L Baso % (Auto) 0.0 Neut # (Auto) 50563 H Lymph # (Auto) 700 L [place] # (Auto) 300 Eos # (Auto) 0 Baso # (Auto) 0 PT INR APTT Sodium Potassium Chloride Carbon Dioxide BUN Creatinine Estimated GFR BUN/Creatinine Ratio Glucose Calcium Total Bilirubin AST ALT Alkaline Phosphatase Total Protein Albumin Globulin Albumin/Globulin Ratio Amylase Lipase Procalcitonin Influenza A & B (PCR) Discharge Plan Discharge Plan Discharge Problem: Acute appendicitis Patient Disposition: Home Discharge comment: You had acute appendicitis. You also had endometriosis. This may be causing some of her monthly symptoms. Discharge orders & Medications Prescriptions: New oxycodone-acetaminophen [Percocet] 5-325 mg tablet See Rx Instructions .ROUTE .COMPLEX PRN (Reason: painful procedure) Qty: 14 RF: 0 No Action No Known Home Medications RF: 0 Follow up/Referrals: Allen Flower MD [Physician] - 1 Week (Please call my office and make an appointment to see me in about 7-10 days. If you have problem a need to reach a doctor after hours please call our office and listen to the entire message. At the end you will be connected with our page machine tool operator. They will call the doctor on-call. Try to avoid use of the emergency room as your postoperative cares included in her operative care) Diet/Activity/Treatments Diet: Diet as Tolerated Activity: Avoid lifting over 10 lb or straining for the next 4 weeks. You may walk. Skin/Wound/Dressing Care Report to your healthcare provider any signs of infection, such as:: chills, fever, night sweats, increased pain, unusual drainage and unusual redness Dressing: Removed Band-Aids on Monday and then you may shower. Leave the Steri-Strips under the gauze fall off on its own. There are no Steri-Strips at your umbilicus. Visit Report/Discharge Packet Instructions: DI for an Appendectomy Discharge Data Attending Provider: Allen Flower Admit Date/Time: 03/31/19 21:57
== END 2019-04-01 14:54 | disposition home or self-care (01) ==
LOC: ED 20:33 → AC 21:58
PROVIDERS: Admitting Provider Specialist; Emergency Provider Nurse Practitioner Family; Visit Provider Specialist
PROC: 0DTJ4ZZ Resection of Appendix, Percutaneous Endoscopic Approach (ICD-10-PCS; CPT 44970; principal; 2019-03-31 22:35)
DX: K35.80 Unspecified acute appendicitis (principal); R10.9 Unspecified abdominal pain; Z23 Encounter for immunization; N80.3 Endometriosis of pelvic peritoneum
CPT/HCPCS: 44970; 36415; 74177; 80053; 81003; 81025; 82150; 83690; 84145; 85025; 85610; 85730; 87502; 90471; 90656; 96361; 96365; 96375; 96376; 99220; 99283; 99284; G0378; J1100; J1650; J1885; J2270; J2405; J2543; J2704; J3010; Q2038

== ENCOUNTER → 2020-05-13 13:46 | Outpatient (CLI) | payer OTHER, SELFPAY ==
[2020-05-13] MEDS: COVID-19 VACC(MODERNA-1)/PF 100 MCG/0.5 ML VIAL IM (13:49)
== END ==
PROVIDERS: PCP Physician Assistant; Visit Provider Internal Medicine
DX: Z23 Encounter for immunization (principal)
CPT/HCPCS: 0011A; 91301

== ENCOUNTER → 2020-05-14 11:18 | Outpatient (CLI) | payer OTHER, SELFPAY ==
[2020-05-14 12:06] LABS: COVID19 -Nasal RAPID Negative (Negative)
== END ==
PROVIDERS: PCP Physician Assistant; Visit Provider Specialist
DX: Z01.812 Encounter for preprocedural laboratory examination (principal); Z20.822 Contact with and (suspected) exposure to COVID-19
CPT/HCPCS: 87635

== ENCOUNTER 2020-05-15 06:47 | Day surgery (SDC) | payer OTHER, SELFPAY ==
[2020-05-13 07:54] VITALS: BMI 25.4
[2020-05-15] VITALS (10 sets, daily range): BP systolic 118–147; BP diastolic 81–104; PULSE 61–77; RESP 15–23; TEMP 36.4–37.1; O2SAT 97–100; BMI 25.4
--- NOTE | 2020-05-15 07:11 | SUR.OPER ---
Lithotomy on padded OR bed, head on pillow, arms secured on padded arm boards at <90 degrees abduction. Legs secured in padded yellow fins stirrups.
[2020-05-15] MEDS: LACTATED RINGERS 1,000 ML 42 ML IV (07:21)
--- NOTE | 2020-05-15 07:26 | PM.PREOP ---
Pre-operative Note COVID-19 COVID-19 status: Negative Result date/Date tested (Pos, Neg/Pending): 05/14/20 Interval Note History & Physical reviewed/Exam performed by Physician: Yes Changes to H&P: No
--- NOTE | 2020-05-15 07:28 | P.HPOB_ITS ---
History of Present Illness History of Present Illness Reason for admission: other (Unable to place Mirena IUD in office) Narrative: Stephanie Franco is a 30 year old female here for placement of Mirena IUD.Notes Chief Complaint: IUD placement for endometriosis Patient is a 30-year-old who was found to have endometriosis incidentally when she had an appendectomy performed. Patient is unable to tolerate oral contraceptives due to depression. Discussed pros and cons of trying a Mirena I UD to decrease the risk of increasing endometriosis prior to her trying to conceive. Patient decided she will go ahead and try a Mirena IUD. Patient had attempt to place Mirena IUD times to in the office which failed. She is here today for placement of the IUD under anesthetic. [facility] Medical History (Updated 05/15/20 @ 07:31 by Chelsie Rodney MD) Healthy adult No active medical problems Surgical History (Updated 05/13/20 @ 07:57 by Patricia Bond RN) S/P laparoscopic appendectomy (04/01/19) Family History (System 04/01/20 @ 10:47 by Maribel Hart) Other Cancer Ovarian cancer Social History (System 04/01/20 @ 10:47 by Maribel Hart) household members: spouse Smoking Status: Never smoker alcohol intake: never Meds Home Medications and Allergies Allergies Allergy/AdvReac Type Severity Reaction Status Date / Time clindamycin AdvReac Mild Rash Verified 05/15/20 07:09 Review of Systems Review of Systems ROS: Yes All systems reviewed with the patient and are negative except as otherwise documented Exam Vital Signs (past 8 hours): - 05/15/20 07:11 Temperature 97.6 F Pulse Rate 74 Respiratory Rate 16 Blood Pressure 139/86 Pulse Oximetry 98 Oxygen Delivery Method Room Air Narrative Exam Narrative: HEENT exam within normal limits. Lungs are clear to auscultation percussion. Heart is regular rate and rhythm no S3-S4 or murmurs. Abdomen is soft, nontender. No palpable organomegaly. Pelvic exam performed 3 weeks ago did not have any abnormalities. Normal external genitalia. Consent form was reviewed with the patient. Risk of complication from anesthetic or medication. Risk of perforation of the uterus. Risk of continued inability to place IUD. Consent form signed and questions answered. Assessment & Plan Assessment and plan (1) Preoperative exam for gynecologic surgery: Status: Acute Assessment & Plan narrative: Preoperative for placement of Mirena IUD under anesthesia. COVID-19 COVID-19 status: Negative Time Spent With Patient Time with patient: less than 15 minutes
--- NOTE | 2020-05-15 08:07 | PM.OP.1 ---
Operative Date/Time/Diagnoses Date of procedure: 05/15/20 Time of procedure: 08:07 Pre-op diagnosis: Unable to place Mirena IUD in office Post-op diagnosis: same Procedure & Clinicians Procedure: Placement of Mirena IUD Same procedure as scheduled: Yes Indications: Patient with endometriosis found incidentally on appendectomy unable to tolerate oral contraceptives who is requesting placement of Mirena IUD to decrease endometriosis. The unable to place the IUD in office x2. Surgeon: Chelsie Rodney Click Yes if Unassisted: Yes Anesthesia Type: Sedation Operative Notes Findings: Normal exam under anesthesia. 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 Successful placement of Mirena IUD after dilation of cervix. Closure Type: not applicable Specimen(s): none sent Estimated Blood Loss (mL): 1 Blood products transfused: none Procedure in detail: Patient was brought to the operating room where she was placed in [facility]. She underwent IV sedation. Speculum was placed in the vagina and a single-tooth tenaculum placed on the anterior lip of the cervix. The cervix was dilated to a number 4 Hegar dilator. The uterus was sounded The to 7 cm. The Mirena IUD was placed and strings cut to 4 cm. Patient went to recovery room in stable condition. Counts of instruments and sponges were correct. Complications: none Post-operative Condition: stable Disposition: same day surgery Plan for aftercare: Home when awake and stable
[2020-05-15] MEDS: KETOROLAC 30 MG/ML VIAL IV (08:15)
[2020-05-15] MEDS: OXYCODONE/ACETAMINOPHEN 5/325 TABLET 1 TAB PO (08:27)
[2020-05-15] MEDS: ONDANSETRON 4 MG/2 ML INJ IV (08:27)
--- NOTE | 2020-05-15 09:02 | SUR.PHASEII ---
Pt has met criteria for discharge, VSS, denies nausea, reports 2/10 pain. Discharge instructions discussed, all questions answered. Transported via W/C to private vehicle.
--- NOTE | 2020-05-15 09:13 | SUR.PHASEI ---
pt arrived from OR, after about 10 min started squirming in bed, gave pt 30 mg toradol, mild improvement. Spoke with Dr Mi, orders in place for post op pain, pt declined fentanyl but did requst percocet and zofran to help with nausea. Tolerated water and applesauce. BP elevated to 140's/100's. Spoke with Dr Mi, ok'd d/c with those BPs. Pt states pain/anxiety can increase her BP, aware of S/Sx of HTN will self monitor. D/c instructions gone over with pt. Report to Alexandre FARRELL for phase II.
== END 2020-05-15 09:05 | disposition home or self-care (01) ==
PROVIDERS: PCP Physician Assistant; Referring Provider Physician Assistant; Visit Provider Specialist
PROC: (CPT 58300; principal; 2020-05-15 07:45)
DX: Z30.430 Encounter for insertion of intrauterine contraceptive device (principal); N80.9 Endometriosis, unspecified; F32.9 Major depressive disorder, single episode, unspecified
CPT/HCPCS: 58300; J1100; J1885; J2405; J7298

== ENCOUNTER → 2020-06-09 13:49 | Outpatient (CLI) | payer OTHER, SELFPAY ==
[2020-06-09] MEDS: COVID-19 VACC #2, MRNA(MOD) 100 MCG/0.5 ML VIAL IM (13:54)
== END ==
PROVIDERS: PCP Physician Assistant; Visit Provider Internal Medicine
DX: Z23 Encounter for immunization (principal)
CPT/HCPCS: 0012A; 91301

== ENCOUNTER → 2021-04-24 10:52 | Outpatient (CLI) | payer OTHER, SELFPAY | PROVIDERS: PCP Physician Assistant; Referring Provider Internal Medicine; Visit Provider Internal Medicine | DX: Z23 Encounter for immunization (principal) | CPT/HCPCS: 90471; 90686 ==

== ENCOUNTER 2022-02-25 15:34 | Emergency (ER) | payer OTHER, SELFPAY ==
[2022-02-25 15:45] VITALS: PULSE 100; O2SAT 100
[2022-02-25 15:48] VITALS: BP 155/103; PULSE 108; RESP 20; TEMP 36.6; O2SAT 100; BMI 25.7
[2022-02-25 15:49] VITALS: BP 148/97; PULSE 100; O2SAT 100
[2022-02-25 16:00] VITALS: BP 132/88; PULSE 99; O2SAT 100
[2022-02-25 16:11] LABS: Add Manual Diff / Slide Review NO; Basophils Absolute Auto 100 /uL (0-100); Basophils Percent Auto 0.6 % (0-2); Eosinophils Absolute Auto 100 /uL (0-450); Eosinophils Percent Auto 0.8 % (2-4); Hematocrit 42.4 % (36-46); Hemoglobin 14.3 g/dL (12.0-16.0); Lymphocytes Absolute Auto 1600 /uL (1100-4500); Lymphocytes Percent Auto 14.8 % (25-40); Mean Corpuscular HGB Conc 33.8 % (30-36); Mean Corpuscular Volume 91.9 fL (80-100); Monocytes Absolute Auto 300 /uL (0-900); Neutrophils Absolute Auto 8900 /uL (1500-7000); Neutrophils Percent Auto 80.8 % (50-75); Platelet Count 188 X10^3/uL (150-400); Red Blood Cell Count 4.61 X10^6/uL (4.0-5.2); Red Cell Distribution Width 12.9 % (11.6-14.8)
[2022-02-25 16:18] LABS: Alanine Aminotransferase 13 IU/L (<35); Albumin 4.5 g/dL (3.5-5.0); Albumin Globulin Ratio 1.2 (1.0-2.8); Alkaline Phosphatase 57 U/L (38-126); Aspartate Aminotransferase 19 IU/L (14-36); BUN Creatinine Ratio 16.7 (6-22); Bilirubin Total 0.3 mg/dL (0.2-1.3); Blood Urea Nitrogen 12 mg/dL (7-17); Calcium 9.3 mg/dL (8.4-10.2); Carbon Dioxide 28 mmol/L (22-32); Chloride 102 mmol/L (98-107); Estimated Glomerular Filt Rate > 60 mL/min (>60); Globulin 3.9 g/dL (1.7-4.1); Glucose 126 mg/dL (70-100); HEMOLYSIS < 15 (0-50); Lipase 74 U/L (23-300); Potassium 3.7 mmol/L (3.4-5.1); Sodium 140 mmol/L (137-145); Total Protein 8.4 g/dL (6.3-8.2)
[2022-02-25 16:22] LABS: COVID19 -Nasal RAPID Negative (Negative)
--- NOTE | 2022-02-25 16:50 | ED.ABDPAIN ---
HPI - Abdominal Pain <Satnam Erazo PA-C - Last Filed: 02/25/22 19:20> General Chief Complaint: Abdominal Pain Stated Complaint: Rt lower ABD pain Time Seen by Provider: 02/25/22 16:22 Source: patient Mode of arrival: Family Vehicle History of Present Illness HPI narrative: Patient is a 31-year-old female who presents to the emergency room today with complaint of abdominal pain that started around noon this morning. States she ate breakfast around 10 and also had 2 bowel movements this morning around 6 and 8. Describes the pain as being a diffuse abdominal pain is mostly on the right side. Describes the pain being the PC spread out through the entire abdomen including the upper pelvic area. Admits having this type pain before and states it was related to her having this done where her appendix was. Have her appendix removed in 2018 and states the stump was diagnosed in 2020. States this was diagnosed after she saw a provider at a walk-in clinic at [facility]. States the provider there referred her to a gastrointestinal doctor. They said the gastrointestinal doctor ordered a CT scan that is where the stump was identified. States the gastrointestinal doctor heard her to surgeon. Pain resolved when she saw the surgeon. And the surgeon advised her to report to the emergency room should the pain return. Has never had a kidney stone denies any lower flank pain also denies any urinary concerns. Denies nausea vomiting diarrhea shortness of breath or chest pain. Related Data Previous Rx's Medication Instructions Recorded levonorgestrel 0.15 mg-ethinyl 1 tab PO DAILY control and 10/08/20 estradiol 30 mcg tablets,3 mos endometriosis #91 ea pack(91) oxycodone-acetaminophen 5 mg-325 1 tab PO Q8H PRN pain #10 tabs 02/25/22 mg tablet (Percocet) Allergies Allergy/AdvReac Type Severity Reaction Status Date / Time clindamycin AdvReac Mild Rash Verified 02/25/22 15:52 Review of Systems <Satnam Erazo PA-C - Last Filed: 02/25/22 19:20> Review of Systems Narrative: R.O.S.: General: No fever, chills or fatigue. Cardiovascular: No chest pain or palpitations Respiratory: No S.O.B. HEENT: No congestion, ear pain, rhinorrhea, sore throat or tinnitus Gastrointestinal: Abdominal pain : No urinary concerns Skin: No rash or associated abnormalities Musculoskeletal: No pain in muscles or joints, no limitation of range of motion, no paresthesia or numbness. ?? Neurological: Awake, alert and in not apparent distress. No Headaches, changes in vision or other related neurological concerns. Patient History <Satnam Erazo PA-C - Last Filed: 02/25/22 19:20> Medical History Acute appendicitis Healthy adult No active medical problems Surgical History S/P laparoscopic appendectomy (04/01/19) Family History Other Cancer Ovarian cancer Social History (System 04/01/20 @ 10:47 by Maribel Hart) household members: spouse Smoking Status: Never smoker alcohol intake: never Smoking Status: Never smoker alcohol intake frequency: 0-2 drinks per day Substance Use Type: does not use Exam <Satnam Erazo PA-C - Last Filed: 02/25/22 19:20> Narrative Exam Narrative: Physical Exam: ? General: normal appearance, well developed, well nourished, alert, and awake. Not in acute distress. ? Head: Normocephalic, no lesions. Chest: Lungs CTAB, no rales, rhonchi or wheezes. ?? Heart: RRR, no murmurs, rubs or gallops. Eyes: PERRLA, EOM's full, conjunctivae clear. ? Neuro: Physiological, no localizing findings, CN3-12 intact. ?? Extremities: Warm, well perfused, FROM, no deformities, no edema. ?? Skin: Normal, no rashes, no lesions noted. ?? PSYCHIATRIC: The mood is good, no blunted affect. Speech is clear. Thought process is linear, thought content is appropriate. The voice is without significant inflection. Gastrointestinal: Soft; mildly tender throughout all 4 quadrants with slightly more tenderness noted at the right upper quadrant area; ND; Pos BS with Neg. rebound tenderness. No scars or major deformities noted on Visual Inspection. Initial Vital Signs Initial Vital Signs: Vital Signs Pulse Rate 100 H 02/25/22 15:45 Pulse Oximetry 100 02/25/22 15:45 <Selena Bennett DO - Last Filed: 03/02/22 07:15> Initial Vital Signs Initial Vital Signs: Vital Signs Pulse Rate 100 H 02/25/22 15:45 Pulse Oximetry 100 02/25/22 15:45 Course <Satnam Erazo PA-C - Last Filed: 02/25/22 19:20> Orders Ordered: ED Orders 02/25/22 15:47 COVID19 -Nasal RAPID/Pre-Proc Stat Complete Blood Count AUTO DIFF Stat Comprehensive Metabolic Panel Stat Lipase Stat Vital Signs Vital signs: Vital Signs - 8 hr 02/25/22 15:48 02/25/22 15:45 02/25/22 15:49 Temperature 97.9 F Pulse Rate 108 H 100 H 100 H Respiratory Rate 20 Blood Pressure 155/103 H Pulse Oximetry 100 100 100 Oxygen Delivery Method Room Air 02/25/22 15:49 02/25/22 16:00 02/25/22 16:00 Temperature Pulse Rate 99 H Respiratory Rate Blood Pressure 148/97 H 132/88 Pulse Oximetry 100 Oxygen Delivery Method <DO [employer] Last Filed: 03/02/22 07:15> Orders Ordered: ED Orders 02/25/22 15:47 COVID19 -Nasal RAPID/Pre-Proc Stat Complete Blood Count AUTO DIFF Stat Comprehensive Metabolic Panel Stat Lipase Stat Vital Signs Vital signs: Vital Signs - 8 hr 02/25/22 15:48 02/25/22 15:45 02/25/22 15:49 Temperature 97.9 F Pulse Rate 108 H 100 H 100 H Respiratory Rate 20 Blood Pressure 155/103 H Pulse Oximetry 100 100 100 Oxygen Delivery Method Room Air 02/25/22 15:49 02/25/22 16:00 02/25/22 16:00 Temperature Pulse Rate 99 H Respiratory Rate Blood Pressure 148/97 H 132/88 Pulse Oximetry 100 Oxygen Delivery Method MDM - Abdominal Pain <DOMENIC Patiño Last Filed: 02/25/22 19:20> Lab Data Result diagrams: 02/25/22 15:47 02/25/22 15:47 Labs: Lab Results 02/25/22 02/25/22 02/25/22 Range/Units 15:47 15:47 15:47 WBC 11.0 (4.5-11.0) X10^3/uL RBC 4.61 (4.0-5.2) X10^6/uL Hgb 14.3 (12.0-16.0) g/dL Hct 42.4 (36-46) % MCV 91.9 (80-100) fL MCH 31.0 (26-34) PG MCHC 33.8 (30-36) % RDW 12.9 (11.6-14.8) % Plt Count 188 (150-400) X10^3/uL Neut % (Auto) 80.8 H (50-75) % Lymph % (Auto) 14.8 L (25-40) % Independence % (Auto) 3.0 (3-14) % Eos % (Auto) 0.8 L (2-4) % Baso % (Auto) 0.6 (0-2) % Neut # (Auto) 8900 H (9116-8966) /uL Lymph # (Auto) 1600 (6436-5723) /uL Independence # (Auto) 300 (0-900) /uL Eos # (Auto) 100 (0-450) /uL Baso # (Auto) 100 (0-100) /uL Sodium 140 (137-145) mmol/L Potassium 3.7 (3.4-5.1) mmol/L Chloride 102 (98-107) mmol/L Carbon Dioxide 28 (22-32) mmol/L BUN 12 (7-17) mg/dL Creatinine 0.72 (0.52-1.04) mg/dL Estimated GFR > 60 (>60) mL/min BUN/Creatinine Ratio 16.7 (6-22) Glucose 126 H (70-100) mg/dL Calcium 9.3 (8.4-10.2) mg/dL Total Bilirubin 0.3 (0.2-1.3) mg/dL AST 19 (14-36) IU/L ALT 13 (<35) IU/L Alkaline Phosphatase 57 (38-126) U/L Total Creatine Kinase (30-135) U/L CK-MB (CK-2) CK-MB (CK-2) Rel Index Troponin I (0.01-0.034) ng/mL Total Protein 8.4 H (6.3-8.2) g/dL Albumin 4.5 (3.5-5.0) g/dL Globulin 3.9 (1.7-4.1) g/dL Albumin/Globulin Ratio 1.2 (1.0-2.8) Lipase 74 (23-300) U/L SARS-CoV-2 (PCR) Negative (Negative) 02/25/22 Range/Units 15:47 WBC (4.5-11.0) X10^3/uL RBC (4.0-5.2) X10^6/uL Hgb (12.0-16.0) g/dL Hct (36-46) % MCV (80-100) fL MCH (26-34) PG MCHC (30-36) % RDW (11.6-14.8) % Plt Count (150-400) X10^3/uL Neut % (Auto) (50-75) % Lymph % (Auto) (25-40) % Independence % (Auto) (3-14) % Eos % (Auto) (2-4) % Baso % (Auto) (0-2) % Neut # (Auto) (0552-8438) /uL Lymph # (Auto) (6677-3797) /uL Independence # (Auto) (0-900) /uL Eos # (Auto) (0-450) /uL Baso # (Auto) (0-100) /uL Sodium (137-145) mmol/L Potassium (3.4-5.1) mmol/L Chloride (98-107) mmol/L Carbon Dioxide (22-32) mmol/L BUN (7-17) mg/dL Creatinine (0.52-1.04) mg/dL Estimated GFR (>60) mL/min BUN/Creatinine Ratio (6-22) Glucose (70-100) mg/dL Calcium (8.4-10.2) mg/dL Total Bilirubin (0.2-1.3) mg/dL AST (14-36) IU/L ALT (<35) IU/L Alkaline Phosphatase (38-126) U/L Total Creatine Kinase 74 (30-135) U/L CK-MB (CK-2) TNP CK-MB (CK-2) Rel Index TNP Troponin I < 0.012 (0.01-0.034) ng/mL Total Protein (6.3-8.2) g/dL Albumin (3.5-5.0) g/dL Globulin (1.7-4.1) g/dL Albumin/Globulin Ratio (1.0-2.8) Lipase (23-300) U/L SARS-CoV-2 (PCR) (Negative) Point of care testing: Point of Care Testing Test Results Negative Imaging Data CT scan - abdomen/pelvis: Radiologist's Impression: [address] [address] [address] Scan Report Signed Patient: Stephanie Franco MR#: [id number] : 1990 Acct:[id number] Age/Sex: 31 / F Date of Service: 02/25/22 Loc: ED Accession Number: [id number] ?? Procedure: CT abdomen pelvis w con Ordering Provider: Satnam Erazo P.A-C PROCEDURE:? CT ABDOMEN PELVIS W CON ? INDICATIONS:? abdominal pain ? TECHNIQUE:? After the administration of intravenous contrast, axial sections acquired from the lung bases to the pubic symphysis.? Coronal and sagittal reformats were performed.? For radiation dose reduction, the following was used:? automated exposure control, adjustment of mA and/or kV according to patient size.? ? COMPARISON:? [facility], CT, CT ABDOMEN PELVIS W CON, 03/31/2019, 20:59. ? FINDINGS:? Image quality:? Excellent.? ? Lung bases:? Unremarkable. Heart:? No significant findings. ? ABDOMEN: Liver:? Unremarkable.? ? Gallbladder:? Unremarkable.? ? Biliary ducts:? Unremarkable.? ? Pancreas:? Unremarkable.? ? Spleen:? Unremarkable.? ? Adrenal Glands:? Unremarkable.? ? Kidneys and Ureters:? Unremarkable.? ? ? Stomach and Bowel:? In the right lower quadrant, in the region of the ileum, there are multiple loops that have apparent wall thickening and there is inflammatory change in the fat adjacent to the terminal ileum.? Findings are consistent with ileitis.? Consider Crohn's ileitis versus infectious ileitis. Peritoneum:? There is a small amount of pelvic ascites, which may be slightly greater than physiologic.? No free air.? No abscess cavity. ? Ventral Wall: ? No hernias.? Abdominal Nodes:? No retroperitoneal or mesenteric adenopathy by size criteria.? Vessels:? Aorta and inferior vena cava are normal in size.? ? PELVIS: Pelvic Organs:? Unremarkable.? ? Bladder:? Unremarkable.? ? Pelvic Nodes: No enlarged lymph nodes.? Miscellaneous: No hernias are seen. ? ? ? Bones:? Unremarkable.? IMPRESSION:? Abnormal appearance of ileal loops including the distal ileum with inflammatory change in the adjacent fat.? Consider Crohn's ileitis versus infectious ileitis. ? ? Dictated by: Mandeep Villa M.D. on 02/25/2022 at 18:18 ? ? Approved by: Mandeep Villa M.D. on 02/25/2022 at 18:24 ? US - abdomen: Radiologist's Impression: [place] [address] Ultrasound Report Signed Patient: Stephanie Franco MR#: [id number] : 1990 Acct:[id number] Age/Sex: 31 / F Date of Service: 02/25/22 Loc: ED Accession Number: [id number] ?? Procedure: US abdomen limited Ordering Provider: Satnam Erazo P.A-C PROCEDURE: US ABDOMEN LIMITED ? INDICATIONS:? Right upper quadrant pain ? TECHNIQUE:? Real-time focused scanning was performed of the abdomen, with image documentation.? ? COMPARISON:? None. ? FINDINGS:? There is a 9 mm mobile gallstone in the gallbladder.? No gallbladder wall thickening or pain on exam or fluid around the gallbladder. ? No dilated ducts.? Common bile duct measures 5.1 mm.? Common hepatic duct measures 1.2 mm. ? Visualized portions the pancreas are unremarkable. ? Liver is unremarkable. ? No right hydronephrosis. ? IMPRESSION:? Cholelithiasis without evidence of cholecystitis. ? ? Dictated by: Mandeep Villa M.D. on 02/25/2022 at 18:14 ? ? Approved by: Mandeep Villa M.D. on 02/25/2022 at 18:15 ? Chest x-ray: Radiologist's Impression: [address] [address] XRay Report Signed Patient: Stephanie Franco MR#: [id number] : 1990 Acct:[id number] Age/Sex: 31 / F Date of Service: 02/25/22 Loc: ED Accession Number: [id number] ?? Procedure: XR chest 2V Ordering Provider: Satnam Erazo P.A-C PROCEDURE:? XR CHEST 2V ? INDICATIONS:? abdominal pain ? TECHNIQUE:? 2 views of the chest were acquired.? ? COMPARISON:? None. ? FINDINGS:? ? Surgical changes and devices:? None.? ? Lungs and pleura:? Lungs are clear.? No pleural effusions or pneumothorax.? ? Mediastinum:? Mediastinal contours are normal.? Heart size is normal.? ? Bones and chest wall:? No suspicious bony abnormalities.? Soft tissues appear unremarkable.? ? IMPRESSION:? No evidence acute pulmonary process. ? ? ? Dictated by: Mandeep Villa M.D. on 02/25/2022 at 18:34 ? ? Approved by: Mandeep Villa M.D. on 02/25/2022 at 18:37 ? ECG Data Interpretation: EKG has normal sinus rhythm with no obvious left bundle-branch block ST segment elevation or Q-wave morphology. MDM Narrative Medical decision making narrative: Patient to the emergency room complaint of abdominal pain that started around noon today. Patient admits to history of appendectomy and previous stump at the area of the moved appendix that was Identified on CT scan. Was advised by her surgeon return to the emergency room should his pain return. Patient's point of the pain mostly on the right side so chest film ECG and troponins were ordered to rule out potential cardiac etiology. Diagnostic of gallstone. CT scan impression of considered Crohn's ileitis versus infectious ileitis. Patient referred to surgery initial pain medicines periodic pain management. <Selena Bennett, DO - Last Filed: 03/02/22 07:15> Lab Data Labs: Lab Results 02/25/22 02/25/22 02/25/22 Range/Units 15:47 15:47 15:47 WBC 11.0 (4.5-11.0) X10^3/uL RBC 4.61 (4.0-5.2) X10^6/uL Hgb 14.3 (12.0-16.0) g/dL Hct 42.4 (36-46) % MCV 91.9 (80-100) fL MCH 31.0 (26-34) PG MCHC 33.8 (30-36) % RDW 12.9 (11.6-14.8) % Plt Count 188 (150-400) X10^3/uL Neut % (Auto) 80.8 H (50-75) % Lymph % (Auto) 14.8 L (25-40) % Independence % (Auto) 3.0 (3-14) % Eos % (Auto) 0.8 L (2-4) % Baso % (Auto) 0.6 (0-2) % Neut # (Auto) 8900 H (8033-9764) /uL Lymph # (Auto) 1600 (5842-8342) /uL Independence # (Auto) 300 (0-900) /uL Eos # (Auto) 100 (0-450) /uL Baso # (Auto) 100 (0-100) /uL Sodium 140 (137-145) mmol/L Potassium 3.7 (3.4-5.1) mmol/L Chloride 102 (98-107) mmol/L Carbon Dioxide 28 (22-32) mmol/L BUN 12 (7-17) mg/dL Creatinine 0.72 (0.52-1.04) mg/dL Estimated GFR > 60 (>60) mL/min BUN/Creatinine Ratio 16.7 (6-22) Glucose 126 H (70-100) mg/dL Calcium 9.3 (8.4-10.2) mg/dL Total Bilirubin 0.3 (0.2-1.3) mg/dL AST 19 (14-36) IU/L ALT 13 (<35) IU/L Alkaline Phosphatase 57 (38-126) U/L Total Creatine Kinase (30-135) U/L CK-MB (CK-2) CK-MB (CK-2) Rel Index Troponin I (0.01-0.034) ng/mL Total Protein 8.4 H (6.3-8.2) g/dL Albumin 4.5 (3.5-5.0) g/dL Globulin 3.9 (1.7-4.1) g/dL Albumin/Globulin Ratio 1.2 (1.0-2.8) Lipase 74 (23-300) U/L SARS-CoV-2 (PCR) Negative (Negative) 02/25/22 Range/Units 15:47 WBC (4.5-11.0) X10^3/uL RBC (4.0-5.2) X10^6/uL Hgb (12.0-16.0) g/dL Hct (36-46) % MCV (80-100) fL MCH (26-34) PG MCHC (30-36) % RDW (11.6-14.8) % Plt Count (150-400) X10^3/uL Neut % (Auto) (50-75) % Lymph % (Auto) (25-40) % Independence % (Auto) (3-14) % Eos % (Auto) (2-4) % Baso % (Auto) (0-2) % Neut # (Auto) (7575-9738) /uL Lymph # (Auto) (4835-9241) /uL Independence # (Auto) (0-900) /uL Eos # (Auto) (0-450) /uL Baso # (Auto) (0-100) /uL Sodium (137-145) mmol/L Potassium (3.4-5.1) mmol/L Chloride (98-107) mmol/L Carbon Dioxide (22-32) mmol/L BUN (7-17) mg/dL Creatinine (0.52-1.04) mg/dL Estimated GFR (>60) mL/min BUN/Creatinine Ratio (6-22) Glucose (70-100) mg/dL Calcium (8.4-10.2) mg/dL Total Bilirubin (0.2-1.3) mg/dL AST (14-36) IU/L ALT (<35) IU/L Alkaline Phosphatase (38-126) U/L Total Creatine Kinase 74 (30-135) U/L CK-MB (CK-2) TNP CK-MB (CK-2) Rel Index TNP Troponin I < 0.012 (0.01-0.034) ng/mL Total Protein (6.3-8.2) g/dL Albumin (3.5-5.0) g/dL Globulin (1.7-4.1) g/dL Albumin/Globulin Ratio (1.0-2.8) Lipase (23-300) U/L SARS-CoV-2 (PCR) (Negative) Point of care testing: Point of Care Testing Test Results Negative Discharge Plan Departure Patient Disposition: Home Clinical Impression: Cholelithiasis, Abdominal pain Instructions: DI for Gallstones, DI for Abdominal Pain-Adult Activity Restrictions/Additional Instructions: *You have been diagnosed with cholelithiasis. I have referred you to surgery to discuss removal of your gallbladder. The surgeon's name is Dr. Borja and their phone number is [phone]. I have also some pain meds to help with your pain for short period of time [ ] *What to do: *Please continue to take your regular medications as directed. [ ] New medication prescriptions sent to your pharmacy: [ ] [x] New medication written as a paper prescription [ ] No new medications given *Please follow up with your primary care provider in 2-3 days, call for an appointment. Let them know you were seen in the Emergency Department and that we ask that you be seen in follow up. We will electronically transmit a record of today's note if your PCP is in our system *If you do not have a primary care provider please contact the [facility] Resource line at [phone]. They will ask some questions about your medical history and help get you set up with a doctor in the community. *Return to Emergency Department if you should have any new, worsening or concerning symptoms, such as [fever greater than 101 F, shaking chills, worsening pain, persistent vomiting or other bothersome symptoms] Prescriptions: New oxycodone-acetaminophen [Percocet] 5-325 mg tablet 1 tab PO Q8H PRN (Reason: pain) Qty: 10 0RF No Action levonorgestrel-ethinyl estrad 0.15 mg-30 mcg (91) tablets,dose pack,3 month 1 tab PO DAILY Qty: 91 3RF Referrals: Inge Chen PA-C [Primary Care Provider] - Visit Report Forms: Patient Portal/API <Selena Bennett DO - Last Filed: 03/02/22 07:15> Cosign ED Attending Alma Rosaature Attestation: I was immediately available in the department for consultation. Documentation has been reviewed. I agree with assessment and plan.
--- NOTE | 2022-02-25 17:01 | DI.CT.S_ITS ---
PROCEDURE: CT ABDOMEN PELVIS W CON INDICATIONS: abdominal pain TECHNIQUE: After the administration of intravenous contrast, axial sections acquired from the lung bases to the pubic symphysis. Coronal and sagittal reformats were performed. For radiation dose reduction, the following was used: automated exposure control, adjustment of mA and/or kV according to patient size. COMPARISON: [facility], CT, CT ABDOMEN PELVIS W CON, 03/31/2019, 20:59. FINDINGS: Image quality: Excellent. Lung bases: Unremarkable. Heart: No significant findings. ABDOMEN: Liver: Unremarkable. Gallbladder: Unremarkable. Biliary ducts: Unremarkable. Pancreas: Unremarkable. Spleen: Unremarkable. Adrenal Glands: Unremarkable. Kidneys and Ureters: Unremarkable. Stomach and Bowel: In the right lower quadrant, in the region of the ileum, there are multiple loops that have apparent wall thickening and there is inflammatory change in the fat adjacent to the terminal ileum. Findings are consistent with ileitis. Consider Crohn's ileitis versus infectious ileitis. Peritoneum: There is a small amount of pelvic ascites, which may be slightly greater than physiologic. No free air. No abscess cavity. Ventral Wall: No hernias. Abdominal Nodes: No retroperitoneal or mesenteric adenopathy by size criteria. Vessels: Aorta and inferior vena cava are normal in size. PELVIS: Pelvic Organs: Unremarkable. Bladder: Unremarkable. Pelvic Nodes: No enlarged lymph nodes. Miscellaneous: No hernias are seen. Bones: Unremarkable. IMPRESSION: Abnormal appearance of ileal loops including the distal ileum with inflammatory change in the adjacent fat. Consider Crohn's ileitis versus infectious ileitis. Dictated by: Mandeep Villa M.D. on 02/25/2022 at 18:18 Approved by: Mandeep Villa M.D. on 02/25/2022 at 18:24
--- NOTE | 2022-02-25 17:04 | DI.RAD.S_ITS ---
PROCEDURE: XR CHEST 2V INDICATIONS: abdominal pain TECHNIQUE: 2 views of the chest were acquired. COMPARISON: None. FINDINGS: Surgical changes and devices: None. Lungs and pleura: Lungs are clear. No pleural effusions or pneumothorax. Mediastinum: Mediastinal contours are normal. Heart size is normal. Bones and chest wall: No suspicious bony abnormalities. Soft tissues appear unremarkable. IMPRESSION: No evidence acute pulmonary process. Dictated by: Mandeep Villa M.D. on 02/25/2022 at 18:34 Approved by: Mandeep Villa M.D. on 02/25/2022 at 18:37
--- NOTE | 2022-02-25 17:07 | DI.US.S_ITS ---
PROCEDURE: US ABDOMEN LIMITED INDICATIONS: Right upper quadrant pain TECHNIQUE: Real-time focused scanning was performed of the abdomen, with image documentation. COMPARISON: None. FINDINGS: There is a 9 mm mobile gallstone in the gallbladder. No gallbladder wall thickening or pain on exam or fluid around the gallbladder. No dilated ducts. Common bile duct measures 5.1 mm. Common hepatic duct measures 1.2 mm. Visualized portions the pancreas are unremarkable. Liver is unremarkable. No right hydronephrosis. IMPRESSION: Cholelithiasis without evidence of cholecystitis. Dictated by: Mandeep Villa M.D. on 02/25/2022 at 18:14 Approved by: Mandeep Villa M.D. on 02/25/2022 at 18:15
[2022-02-25 17:57] LABS: Creatine Kinase 74 U/L (30-135)
[2022-02-25 18:10] LABS: Troponin I < 0.012 ng/mL (0.01-0.034)
[2022-02-25 19:34] VITALS: BP 134/90; PULSE 108; RESP 20; O2SAT 97
== END 2022-02-25 19:30 | disposition home or self-care (01) ==
PROVIDERS: Emergency Medicine; Emergency Provider Physician Assistant; PCP Physician Assistant
DX: K80.20 Calculus of gallbladder without cholecystitis without obstruction (principal); R10.31 Right lower quadrant pain; Z20.822 Contact with and (suspected) exposure to COVID-19
CPT/HCPCS: 36415; 71046; 74177; 76705; 80053; 81025; 82550; 83690; 84484; 85025; 87635; 93005; 93010; 99284; C9803; Q9967

== ENCOUNTER → 2022-04-18 11:20 | Outpatient (CLI) | payer OTHER, SELFPAY ==
[2022-04-18 12:56] LABS: TSH w/ Reflex to FT4 0.61 uIU/mL (0.47-4.68)
[2022-04-19 07:29] LABS: Varicella IgG Antibody 455 index (Immune >165)
== END ==
PROVIDERS: PCP Physician Assistant; Referring Provider Obstetrics & Gynecology; Visit Provider Obstetrics & Gynecology
DX: Z31.69 Encounter for other general counseling and advice on procreation (principal)
CPT/HCPCS: 36415; 84443; 86762; 86787

== ENCOUNTER → 2022-09-16 12:46 | Outpatient (CLI) | payer OTHER, BC, SELFPAY ==
--- NOTE | 2022-09-16 12:51 | DI.RAD.S_ITS ---
PROCEDURE: HL HYSTEROSAPINGOGRAPHY INDICATIONS: Hx Endometriosis COMPARISON: None. FINDINGS: Patient had a documented negative test prior to the study. Following speculum insertion, a balloon-tip catheter was inserted into the cervical canal, and secured by inflating the balloon. Contrast was then injected into the endometrial canal. Uterus: The uterine cavity appears normal in size and morphology, without synechiae or masses. Fallopian tubes: Both fallopian tubes fill with contrast, and appear normal in caliber and morphology. There is ready dispersion of contrast into the peritoneal cavity. IMPRESSION: Normal study. Dictated by: Jan Fritz M.D. on 09/16/2022 at 15:50 Approved by: Jan Fritz M.D. on 09/16/2022 at 15:51
--- NOTE | 2022-09-16 13:16 | P.PCN_ITS ---
Procedures Date/Time Date of procedure: 09/16/22 Time of procedure: 13:00 General Procedure description: Hysterosalpingogram Diagnosis for procedure: Known endometriosis with infertility The patient presented to Radiology for hysterosalpingogram. Consent form was reviewed with the patient and the consent form signed. Risks are minimal for infection and pain. A speculum was placed in the vagina. The 5 Hebrew hysteroscopy catheter was placed through the cervix into the uterus. The balloon was inflated with 1 cc of air. The radiologist was present and with fluoroscopy the uterus was examined with injection of the radiopaque dye. Patient tolerated the procedure well. It appeared that the uterus was normal and dye went through the fallopian tubes bilaterally into the abdomen without difficulty. Complications: none
== END ==
PROVIDERS: PCP Physician Assistant; Referring Provider Specialist; Visit Provider Specialist
DX: N97.8 Female infertility of other origin (principal); N80.9 Endometriosis, unspecified
CPT/HCPCS: 58340; 74740

== ENCOUNTER → 2022-09-29 10:35 | Outpatient (CLI) | payer OTHER, BC, SELFPAY ==
[2022-09-29 12:03] LABS: Progesterone, Total 5.26 ng/mL
== END ==
PROVIDERS: PCP Physician Assistant; Referring Provider Specialist; Visit Provider Specialist
DX: Z31.9 Encounter for procreative management, unspecified (principal)
CPT/HCPCS: 36415; 84144

== ENCOUNTER → 2023-02-22 14:55 | Outpatient (CLI) | payer OTHER, SELFPAY | PROVIDERS: PCP Physician Assistant; Referring Provider Obstetrics & Gynecology; Visit Provider Obstetrics & Gynecology | DX: R79.89 Other specified abnormal findings of blood chemistry (principal); Z34.00 Encounter for supervision of normal first pregnancy, unspecified trimester | CPT/HCPCS: 36415; 84144 ==

== ENCOUNTER → 2023-03-24 15:00 | Outpatient (CLI) | payer OTHER, SELFPAY ==
[2023-03-24 21:14] LABS: Urine N gonorrhoeae NOT DETECTED
[2023-03-24 21:32] LABS: Urine Chlamydia NOT DETECTED
== END ==
PROVIDERS: PCP Physician Assistant; Visit Provider Obstetrics & Gynecology
DX: Z34.01 Encounter for supervision of normal first pregnancy, first trimester (principal); Z3A.09 9 weeks gestation of pregnancy; R79.89 Other specified abnormal findings of blood chemistry
CPT/HCPCS: 87491; 87591

== ENCOUNTER → 2023-03-28 10:23 | Outpatient (CLI) | payer OTHER, BC, SELFPAY ==
[2023-03-28 11:19] LABS: Add Manual Diff / Slide Review NO; Basophils Absolute Auto 100 /uL (0-100); Basophils Percent Auto 0.6 % (0-2); Eosinophils Absolute Auto 200 /uL (0-450); Eosinophils Percent Auto 1.9 % (2-4); Hematocrit 40.8 % (36-46); Lymphocytes Absolute Auto 1700 /uL (1100-4500); Mean Corpuscular HGB Conc 34.2 % (30-36); Mean Corpuscular Volume 90.5 fL (80-100); Monocytes Absolute Auto 600 /uL (0-900); Monocytes Percent Auto 6.8 % (3-14); Neutrophils Absolute Auto 6400 /uL (1500-7000); Neutrophils Percent Auto 71.7 % (50-75); Platelet Count 194 X10^3/uL (150-400); Red Blood Cell Count 4.51 X10^6/uL (4.0-5.2); Red Cell Distribution Width 13.3 % (11.6-14.8)
[2023-03-28 12:01] LABS: Vitamin D 25 Hydroxy (D3) 46.3 ng/mL (30.0-100.0)
[2023-03-29 07:13] LABS: RPR Screen Non Reactive (Non Reactive)
[2023-03-29 09:14] LABS: Varicella IgG Antibody 495 index (Immune >165)
[2023-03-30 16:39] LABS: HIV 1 & 2 Ab/Ag 4th Gen Combo NEGATIVE (NEGATIVE); Hep C Virus Ab w/Reflex Quant NEGATIVE s/c (NEGATIVE); Hepatitis B Surface Antigen NEGATIVE s/c (NEGATIVE); Rubella Antibody IgG 27.3 IU/mL (>15)
== END ==
PROVIDERS: PCP Physician Assistant; Referring Provider Obstetrics & Gynecology; Visit Provider Obstetrics & Gynecology
DX: Z34.01 Encounter for supervision of normal first pregnancy, first trimester (principal); Z34.00 Encounter for supervision of normal first pregnancy, unspecified trimester; R79.89 Other specified abnormal findings of blood chemistry
CPT/HCPCS: 36415; 80055; 82306; 84144; 86787; 86803; 86850; 86900; 86901; 87086; 87389

== ENCOUNTER → 2023-04-24 15:24 | Outpatient (CLI) | payer OTHER, BC, SELFPAY | PROVIDERS: PCP Physician Assistant; Referring Provider Obstetrics & Gynecology; Visit Provider Obstetrics & Gynecology | DX: R79.89 Other specified abnormal findings of blood chemistry (principal) | CPT/HCPCS: 36415; 84144 ==

== ENCOUNTER → 2023-05-09 12:55 | Outpatient (CLI) | payer OTHER, BC, SELFPAY ==
[2023-05-11 20:36] LABS: AFP Value 28.2 ng/mL (.); Insulin Dep Diabetes No (.); OSBR Risk 1IN 10000 (.); Results Report (.); Test Results *Screen Negative* (.)
[2023-05-12 07:03] LABS: PDF SCANNED
== END ==
LOC: LAB 12:57
PROVIDERS: PCP Physician Assistant; Referring Provider Obstetrics & Gynecology; Visit Provider Obstetrics & Gynecology
DX: Z34.02 Encounter for supervision of normal first pregnancy, second trimester (principal); Z3A.16 16 weeks gestation of pregnancy
CPT/HCPCS: 36415; 82105

== ENCOUNTER → 2023-06-06 10:01 | Outpatient (CLI) | payer OTHER, BC, SELFPAY ==
--- NOTE | 2023-06-06 10:01 | DI.US.S_ITS ---
PROCEDURE: US OB >= 14 WEEKS FETUS INDICATIONS: 20 Week Anatomy Scan OUTSIDE/PRIOR DATING DATA: Last menstrual period (LMP): January 17, 2023. LMP-based estimated date of delivery (NAMITA): October 24, 2023. First dating scan (date and location): March 24, 2023. Estimated date of delivery (NAMITA) from first dating scan: October 20, 2023. The calculations are made using the LMP NAMITA of October 24, 2023. TECHNIQUE: Real-time scanning was performed of the fetus, with image documentation and biometric measurements. Endovaginal scanning: Not performed COMPARISON: None. FINDINGS: General: A single living intrauterine gestation is present. Presentation: Variable. Placenta: Placental position is posterior , without previa. Amniotic fluid index: 15.3 cm, normal range is 5-24 cm. Single deepest vertical pocket is 5.3 cm. heart rate: 143 beats per minute. Maternal cervical canal: 4.0 cm long. Normal lower limit is 2.5 cm. biometrics: Biparietal diameter: 4.9 cm, 20 weeks and 5 days Head circumference: 18.5 cm, 20 weeks and 6 days Abdominal circumference: 15.8 cm, 20 weeks and 6 days Femur length: 3.4 cm, 20 weeks and 5 days Clinically estimated gestational age: 20 weeks and 0 days Composite gestational age from present scan: 20 weeks and 6 days Estimated weight and percentile: 377 g which correlates with approximately the 86th percentile for gestational age. Anatomic survey: Neuro: Ventricles are non-dilated at less than 10 mm. Cisterna magna is normal at 3-11 mm. Cerebellum is normal in size and morphology. Nuchal skin fold: Normal at less than 6 mm between 14-21 weeks gestational age. Face: Nose and lips, facial profile are normal. Spine: No evidence for spina bifida. Heart: 4-chambered heart is present, with normal ventricular outflow tracts. There is a small echogenic focus noted in the left ventricle. Diaphragm: Diaphragm is intact. Stomach: Left-sided stomach is present. Kidneys: No hydronephrosis. Normal is less than 5 mm in 2nd trimester, less than 7 mm in 3rd trimester. Cord: 3-vessel cord has orthotopic insertion. Bladder: Normal in size. Extremities: All 4 extremities identified. IMPRESSION: Single living intrauterine gestation with estimated sonographic gestational age of approximately 20 weeks and 6 days versus approximately 20 weeks and 0 days based last menstrual period. Dating is concordant. Normal interval growth. Small echogenic focus identified within the left ventricle. In the absence of other anatomic abnormalities or maternal risk factors, this finding is most likely a normal variant either representing the normal papillary muscle or chordae tendinae and is of doubtful clinical significance. Otherwise, normal routine second trimester anatomic screening survey. We strive to produce accurate, complete, and clear reports of imaging services. To assist us in improving patient care, this report was composed using standard report templates and voice recognition software. Therefore, it may contain abnormal punctuation, insertions and/or omissions. Occasional wrong-word or sound-alike substitutions may occur. Though we review the report and make efforts to correct it, we do recommend that the report be read carefully in proper context to recognize any text inaccuracies. Dictated by: Melvin Triana M.D. on 06/06/2023 at 13:31 Approved by: Melvin Triana M.D. on 06/06/2023 at 13:53
== END ==
LOC: US 10:01
PROVIDERS: PCP Physician Assistant; Referring Provider Specialist; Visit Provider Specialist
DX: Z34.02 Encounter for supervision of normal first pregnancy, second trimester (principal); Z3A.20 20 weeks gestation of pregnancy
CPT/HCPCS: 76811

== ENCOUNTER → 2023-10-10 16:34 | Outpatient (CLI) | payer BC, SELFPAY ==
--- NOTE | 2023-10-10 16:36 | DI.US.S_ITS ---
PROCEDURE: US OB FOLLOW UP INDICATIONS: Growth check OUTSIDE/PRIOR DATING DATA: Last menstrual period (LMP): 01/17/23. LMP-based estimated date of delivery (NAMITA): 10/24/23. First dating scan (date and location): 03/24/23. Estimated date of delivery (NAMITA) from first dating scan: 10/20/23. The calculations are made using the clinical NAMITA of 10/20/23. TECHNIQUE: Real-time scanning was performed of the fetus, with image documentation and biometric measurements. Endovaginal scanning: Not performed COMPARISON: [facility], US, US OB LIMITED, 09/01/2023, 14:37. FINDINGS: General: A single living intrauterine gestation is present. Presentation: Vertex. Placenta: Placental position is anterior to the maternal left , without previa. Mature placental appearance. Amniotic fluid index: 19.0 cm, normal range is 5-24 cm. Single deepest vertical pocket is 6.2 cm. heart rate: 145 beats per minute. Maternal cervical canal: Not well seen biometrics: Biparietal diameter: 9.7 cm, 39 weeks three days Head circumference: 34.6 cm, 40 weeks 0 days Abdominal circumference: 38.1 cm, 42 weeks 0 days Femur length: 7.4 cm, 37 weeks six days Clinically estimated gestational age: 38 weeks 0 days Composite gestational age from present scan: 39 weeks six days Estimated weight and percentile: 4164 g, 99th percentile Other: Not applicable. IMPRESSION: Single living intrauterine in vertex presentation. Estimated weight at the 99th percentile. Composite gestational age is one weeks six days greater than the expected gestational age. We strive to produce accurate, complete, and clear reports of imaging services. To assist us in improving patient care, this report was composed using standard report templates and voice recognition software. Therefore, it may contain abnormal punctuation, insertions and/or omissions. Occasional wrong-word or sound-alike substitutions may occur. Though we review the report and make efforts to correct it, we do recommend that the report be read carefully in proper context to recognize any text inaccuracies. Dictated by: Erika Back M.D. on 10/11/2023 at 8:32 Approved by: Erika Back M.D. on 10/11/2023 at 8:37
== END ==
PROVIDERS: PCP Physician Assistant; Referring Provider Family Medicine; Visit Provider Family Medicine
DX: Z34.03 Encounter for supervision of normal first pregnancy, third trimester (principal); Z3A.39 39 weeks gestation of pregnancy
CPT/HCPCS: 76816